=== PATIENT | male | born 1985 | race Caucasian/White ===

== ENCOUNTER 2017-11-16 08:22 | Day surgery (SDC) | payer MEDICARE, OTHER ==
[2017-11-16 10:26] LABS: ADD MAN DIFF? NO
[2017-11-16 10:31] LABS: BASOPHILS % 0.3 % (0.0-2.0); EOSINOPHILS # 0.2 10^3/ul (0.0-0.5); EOSINOPHILS % 3.7 % (0.0-7.0); HEMATOCRIT 30.3 % (42.0-52.0); HEMOGLOBIN 9.4 g/dl (14.0-18.0); LYMPHOCYTES # 1.1 10^3/ul (0.8-2.9); LYMPHOCYTES % 19.1 % (15.0-51.0); MEAN CORPUSCULAR HEMOGLOBIN 28.6 pg (29.0-33.0); MEAN CORPUSCULAR VOLUME 92.1 fl (82.0-101.0); MONOCYTE # 0.6 10^3/ul (0.3-0.9); MONOCYTES % 10.1 % (0.0-11.0); NEUTROPHIL # 3.8 10^3/ul (1.6-7.5); NEUTROPHILS % 66.5 % (39.0-77.0); PLATELET COUNT 141 10^3/UL (140-415); RED BLOOD COUNT 3.29 10^6/ul (4.70-6.10); RED CELL DISTRIBUTION WIDTH 13.9 % (11.5-14.5)
[2017-11-16 10:31] LABS: WHITE BLOOD COUNT 5.8 10^3/ul (4.8-10.8)
[2017-11-16 10:53] LABS: ANION GAP 17 (8-16); CARBON DIOXIDE 29 mmol/L (21-31); CHLORIDE 101 mmol/L (97-110); GLUCOSE 94 mg/dl (70-220)
[2017-11-16 10:55] LABS: BLOOD UREA NITROGEN 43 mg/dl (7-20); CALCIUM 9.8 mg/dl (8.4-10.2); CREATININE 12.65 mg/dl (0.61-1.24); POTASSIUM 4.8 mmol/L (3.5-5.1); SODIUM 142 mmol/L (135-144)
[2017-11-16 10:59] LABS: INR 1.11; PROTIME 14.5 Sec (11.9-14.9); PT RATIO 1.1
[2017-11-16 11:00] LABS: PARTIAL THROMBOPLASTIN TIME 34.8 Sec (25.0-35.0)
== END 2017-11-16 13:45 | disposition home or self-care (01) ==
LOC: SDS 08:22
DX: T82.898A Other specified complication of vascular prosthetic devices, implants and grafts, initial encounter (principal); Y84.1 Kidney dialysis as the cause of abnormal reaction of the patient, or of later complication, without mention of misadventure at the time of the procedure; I12.0 Hypertensive chronic kidney disease with stage 5 chronic kidney disease or end stage renal disease; N18.6 End stage renal disease; Z86.73 Personal history of transient ischemic attack (TIA), and cerebral infarction without residual deficits
CPT/HCPCS: 36901; 71045; 75820; 76937; 80048; 85025; 85610; 85730; 93005

== ENCOUNTER 2017-11-24 07:16 | Day surgery (SDC) | payer MEDICARE, OTHER ==
[~2017-11-24 07:16] MED LIST: ATROPINE 1 MG/10 ML SYRINGE IV; CEFAZOLIN 2 GM/50 ML (PMX) 50 ML IVPB; DIPHENHYDRAMINE 50 MG INJ IV; EPHEDrine SULFATE 50 MG/5 ML SYG IV; FENTAnyl 50 MCG/ML VIAL IV; HYDROmorphONE (0.2 MG/ML) 10ML SYG IV; LABETALOL HCL 20MG INJ IV; MEPERIDINE 25 MG INJ IV; MIDAZOLAM 1 MG/ML 2 ML INJ IV; ONDANSETRON 4 MG INJ IV; OXYCODONE/ACETAMINOPHEN (5/325) TAB PO; hydrALAzine 20 MG INJ IV; morphine (1 MG/ML) 10ML SYRINGE IV
[2017-11-24] MEDS ORDERED: THROMBIN 5000 UNIT VIAL (07:22)
[2017-11-24] MEDS ORDERED: HEPARIN 1000 UNITS/ML 10 ML INJ (07:22)
[2017-11-24 08:25] LABS: ADD MAN DIFF? NO
[2017-11-24 08:33] LABS: WHITE BLOOD COUNT 4.9 10^3/ul (4.8-10.8)
[2017-11-24 08:33] LABS: BASOPHIL # 0.1 10^3/ul (0.0-0.1); EOSINOPHILS # 0.2 10^3/ul (0.0-0.5); EOSINOPHILS % 4.3 % (0.0-7.0); HEMATOCRIT 32.5 % (42.0-52.0); HEMOGLOBIN 9.9 g/dl (14.0-18.0); LYMPHOCYTES % 19.7 % (15.0-51.0); MEAN CORPUSCULAR HEMOGLOBIN 28.5 pg (29.0-33.0); MEAN CORPUSCULAR HGB CONC 30.5 g/dl (32.0-37.0); MEAN CORPUSCULAR VOLUME 93.7 fl (82.0-101.0); MONOCYTE # 0.5 10^3/ul (0.3-0.9); MONOCYTES % 10.8 % (0.0-11.0); NEUTROPHIL # 3.2 10^3/ul (1.6-7.5); PLATELET COUNT 124 10^3/UL (140-415); RED BLOOD COUNT 3.47 10^6/ul (4.70-6.10); RED CELL DISTRIBUTION WIDTH 14.9 % (11.5-14.5)
[2017-11-24 08:50] LABS: ANION GAP 17 (8-16); CARBON DIOXIDE 32 mmol/L (21-31); CHLORIDE 98 mmol/L (97-110); GLUCOSE 93 mg/dl (70-220); PROTIME 13.3 Sec (11.9-14.9)
[2017-11-24 08:51] LABS: PARTIAL THROMBOPLASTIN TIME 33.3 Sec (25.0-35.0)
[2017-11-24 08:54] LABS: HOLD TRANSMISSIONS 1
[2017-11-24] MEDS ORDERED: LIDOCAINE 2% (SDV) 5 ML INJ (09:03)
[2017-11-24] MEDS ORDERED: PROPOFOL 20 ML (09:03)
[2017-11-24] MEDS ORDERED: MIDAZOLAM 1 MG/ML 2 ML INJ (09:03)
[2017-11-24] MEDS ORDERED: FENTAnyl 50 MCG/ML VIAL (09:03)
[2017-11-24] MEDS ORDERED: NEOSTIGMINE 3 MG/3 ML SYRINGE (09:03)
[2017-11-24] MEDS ORDERED: ROCURONIUM 50 MG INJ (09:03)
[2017-11-24] MEDS ORDERED: GLYCOPYRROLATE 0.4 MG INJ (09:03)
[2017-11-24 09:07] LABS: BLOOD UREA NITROGEN 26 mg/dl (7-20); CREATININE 8.68 mg/dl (0.61-1.24); POTASSIUM 4.4 mmol/L (3.5-5.1); SODIUM 143 mmol/L (135-144)
[2017-11-24] MEDS: BUPIVACAINE 0.5% (SDV) 30 ML INJ (09:17)
[2017-11-24] MEDS: LIDOCAINE 1% (MPF) 30 ML INJ (09:17)
[2017-11-24] MEDS ORDERED: CEFAZOLIN 1 GM INJ (09:57)
== END 2017-11-24 11:26 | disposition home or self-care (01) ==
LOC: SDS 07:16
DX: I12.0 Hypertensive chronic kidney disease with stage 5 chronic kidney disease or end stage renal disease (principal); N18.6 End stage renal disease; Z86.73 Personal history of transient ischemic attack (TIA), and cerebral infarction without residual deficits
CPT/HCPCS: 37607; 80048; 85025; 85610; 85730

== ENCOUNTER 2017-12-29 12:25 | Inpatient (IN) | payer MEDICARE, OTHER ==
[2017-12-29] MEDS: DILTIAZEM-D5W 125MG/125ML DRIP 125 ML IV ×3 (13:01→21:05)
[2017-12-29] MEDS: DILTIAZEM 50 MG INJ IV (13:01)
[2017-12-29 13:04] LABS: ADD MAN DIFF? NO
[2017-12-29 13:06] LABS: WHITE BLOOD COUNT 4.5 10^3/ul (4.8-10.8)
[2017-12-29 13:06] LABS: BASOPHILS % 0.7 % (0.0-2.0); EOSINOPHILS # 0.1 10^3/ul (0.0-0.5); EOSINOPHILS % 2.9 % (0.0-7.0); HEMATOCRIT 32.2 % (42.0-52.0); LYMPHOCYTES # 0.8 10^3/ul (0.8-2.9); LYMPHOCYTES % 17.9 % (15.0-51.0); MEAN CORPUSCULAR HEMOGLOBIN 28.7 pg (29.0-33.0); MEAN CORPUSCULAR HGB CONC 31.1 g/dl (32.0-37.0); MEAN CORPUSCULAR VOLUME 92.5 fl (82.0-101.0); MEAN PLATELET VOLUME 10.3 fl (7.4-10.4); MONOCYTE # 0.4 10^3/ul (0.3-0.9); MONOCYTES % 8.7 % (0.0-11.0); NEUTROPHIL # 3.1 10^3/ul (1.6-7.5); NEUTROPHILS % 69.6 % (39.0-77.0); PLATELET COUNT 177 10^3/UL (140-415); RED BLOOD COUNT 3.48 10^6/ul (4.70-6.10); RED CELL DISTRIBUTION WIDTH 16.1 % (11.5-14.5)
[2017-12-29 13:26] LABS: ALANINE AMINOTRANSFERASE 37 IU/L (13-69); ALBUMIN 4.2 g/dl (3.3-4.9); ALBUMIN/GLOBULIN RATIO 1.27; ALKALINE PHOSPHATASE 235 IU/L (42-121); ANION GAP 17 (8-16); ASPARTATE AMINO TRANSFERASE 33 IU/L (15-46); BILIRUBIN,INDIRECT 0.9 mg/dl (0-1.1); BILIRUBIN,TOTAL 0.9 mg/dl (0.2-1.3); BLOOD UREA NITROGEN 32 mg/dl (7-20); CALCIUM 9.6 mg/dl (8.4-10.2); CARBON DIOXIDE 30 mmol/L (21-31); CHLORIDE 99 mmol/L (97-110); CREATININE 7.44 mg/dl (0.61-1.24); GLUCOSE 81 mg/dl (70-220); SODIUM 142 mmol/L (135-144); TOTAL PROTEIN 7.5 g/dl (6.1-8.1)
[2017-12-29 13:27] LABS: INR 0.98; PROTIME 13.1 Sec (11.9-14.9)
[2017-12-29 13:28] LABS: PARTIAL THROMBOPLASTIN TIME 33.2 Sec (25.0-35.0)
[2017-12-29 13:36] LABS: TROPONIN-I 0.031 ng/ml (0.000-0.120)
[2017-12-29] MEDS ORDERED: ONDANSETRON 4 MG INJ IV ×2 (14:00→16:00)
[2017-12-29] MEDS ORDERED: ACETAMINOPHEN 325 MG TAB PO ×2 (14:00→16:00)
[2017-12-29 14:09] LABS: MAGNESIUM 2.2 mg/dl (1.7-2.5)
[2017-12-29] MEDS ORDERED: morphine 2 MG INJ IV (16:00)
[2017-12-29] MEDS ORDERED: DILTIAZEM-D5W 125MG/125ML DRIP 125 ML IV (16:00)
[2017-12-29] MEDS ORDERED: NACL 0.9% 3 ML SYG IV (16:00)
[2017-12-29] MEDS ORDERED: HYDROCODONE/APAP (5/325) TAB PO (16:00)
[2017-12-29] MEDS ORDERED: SEVELAMER CARBONATE 0.8 GM PKT PO (18:00)
[2017-12-29 18:48] LABS: CREATINE KINASE 43 IU/L (23-200)
[2017-12-29 19:02] LABS: CK INDEX 1.8
[2017-12-29 19:03] LABS: CK-MB 0.78 ng/ml (0.0-2.4); TROPONIN-I 0.381 ng/ml (0.000-0.120)
[2017-12-29] MEDS: HEPARIN 5,000 UNIT/0.5 ML VIAL SC (21:32)
[2017-12-30 01:29] LABS: CREATINE KINASE 40 IU/L (23-200)
[2017-12-30 01:41] LABS: CK INDEX 1.7
[2017-12-30 01:43] LABS: CK-MB 0.66 ng/ml (0.0-2.4); TROPONIN-I 0.645 ng/ml (0.000-0.120)
[2017-12-30] MEDS: PANTOPRAZOLE (EC) 40 MG TAB PO (06:36)
[2017-12-30 07:13] LABS: ADD MAN DIFF? NO
[2017-12-30 07:14] LABS: WHITE BLOOD COUNT 5.8 10^3/ul (4.8-10.8)
[2017-12-30 07:14] LABS: BASOPHILS % 0.7 % (0.0-2.0); EOSINOPHILS # 0.2 10^3/ul (0.0-0.5); EOSINOPHILS % 2.9 % (0.0-7.0); HEMATOCRIT 29.6 % (42.0-52.0); HEMOGLOBIN 9.3 g/dl (14.0-18.0); LYMPHOCYTES # 1.4 10^3/ul (0.8-2.9); LYMPHOCYTES % 24.5 % (15.0-51.0); MEAN CORPUSCULAR HEMOGLOBIN 29.2 pg (29.0-33.0); MEAN CORPUSCULAR HGB CONC 31.4 g/dl (32.0-37.0); MEAN CORPUSCULAR VOLUME 92.8 fl (82.0-101.0); MEAN PLATELET VOLUME 10.5 fl (7.4-10.4); MONOCYTE # 0.6 10^3/ul (0.3-0.9); MONOCYTES % 9.7 % (0.0-11.0); NEUTROPHIL # 3.6 10^3/ul (1.6-7.5); PLATELET COUNT 174 10^3/UL (140-415); RED BLOOD COUNT 3.19 10^6/ul (4.70-6.10); RED CELL DISTRIBUTION WIDTH 15.9 % (11.5-14.5)
[2017-12-30 07:25] LABS: HEMOGLOBIN A1C 4.7 % (0-5.9)
[2017-12-30 07:42] LABS: ANION GAP 14 (8-16); BLOOD UREA NITROGEN 49 mg/dl (7-20); CALCIUM 9.5 mg/dl (8.4-10.2); CARBON DIOXIDE 28 mmol/L (21-31); CHLORIDE 100 mmol/L (97-110); CREATININE 10.17 mg/dl (0.61-1.24); GLUCOSE 90 mg/dl (70-220); MAGNESIUM 2.5 mg/dl (1.7-2.5); SODIUM 137 mmol/L (135-144)
[2017-12-30 07:49] LABS: TROPONIN-I 0.483 ng/ml (0.000-0.120)
[2017-12-30] MEDS: HEPARIN 5,000 UNIT/0.5 ML VIAL SC (09:27)
[2017-12-30 13:16] LABS: TROPONIN-I 0.352 ng/ml (0.000-0.120)
[2017-12-30] MEDS: ASPIRIN 325 MG TAB PO (15:13)
[2017-12-30] MEDS ORDERED: morphine LIQ (10 MG/5 ML) CUP PO (15:30)
[2017-12-30] MEDS: EPOETIN 10000 UNITS/1 ML INJ (ESRD) SC (16:25)
== END 2017-12-30 16:52 | disposition home or self-care (01) | DRG 308 ==
LOC: MS4 16:27 → E/R 12:25 → MS4 13:54
DX: I48.91 Unspecified atrial fibrillation (principal); N18.6 End stage renal disease; I12.0 Hypertensive chronic kidney disease with stage 5 chronic kidney disease or end stage renal disease; D63.1 Anemia in chronic kidney disease; R10.13 Epigastric pain; F15.11 Other stimulant abuse, in remission; Z99.2 Dependence on renal dialysis; Z86.73 Personal history of transient ischemic attack (TIA), and cerebral infarction without residual deficits; Z87.891 Personal history of nicotine dependence
CPT/HCPCS: 36415; 71045; 80048; 80053; 82550; 82553; 83036; 83735; 84484; 85025; 85610; 85730; 93005; 93306; 96374; 96375; 99291-25